=== PATIENT | male | born 1965 | race Caucasian/White ===

== ENCOUNTER → 2017-05-23 | Outpatient (CLI) | payer OTHER | END | disposition home or self-care (01) | LOC: CFH 14:52 | PROVIDERS: ATTEND Internal Medicine Cardiovascular Disease | DX: I51.7 Cardiomegaly (principal); E78.5 Hyperlipidemia, unspecified; R94.31 Abnormal electrocardiogram [ECG] [EKG]; Z87.891 Personal history of nicotine dependence | CPT/HCPCS: 93306 ==

== ENCOUNTER 2017-07-24 10:32 | Day surgery (SDC) | payer OTHER ==
[~2017-07-24] VITALS: Ht 188 cm; Wt 80.0 kg
[2017-07-24] MEDS ORDERED: SODIUM CHLORIDE 0.9% 1,000 ML IV SCH (11:00)
[2017-07-24] MEDS ORDERED: NALOXONE 0.4 MG/ML, 1ML IVPush PRN ×2 (11:00)
[2017-07-24 11:02] VITALS: BP 139/93
[2017-07-24] MEDS ORDERED: ATOR40TA PO (11:02)
[2017-07-24] MEDS ORDERED: FLUT9.9S NAS (11:02)
[2017-07-24] MEDS ORDERED: KRIL500C PO (11:02)
[2017-07-24] MEDS ORDERED: CHOL400T2 PO (11:02)
[2017-07-24] MEDS ORDERED: MULT1TAB57 PO (11:02)
[2017-07-24] MEDS ORDERED: PROPOFOL 10 MG/ML, 20ML ONE (12:16)
== END 2017-07-24 13:25 ==
LOC: CACL 10:32
PROVIDERS: ATTEND Internal Medicine Cardiovascular Disease
DX: I34.0 Nonrheumatic mitral (valve) insufficiency (principal); E78.4 Other hyperlipidemia; Z82.49 Family history of ischemic heart disease and other diseases of the circulatory system; Z98.890 Other specified postprocedural states
CPT/HCPCS: 93312; 93321; 93325; J2704